=== PATIENT | male | born 1990 | race Hispanic/Latino ===

== ENCOUNTER 2021-11-14 07:41 | Emergency (ER) | payer SELFPAY ==
[2021-11-14 08:25] VITALS: BP 125/72
--- NOTE | 2021-11-14 08:55 | XRay Report ---
LEFT SHOULDER 3 VIEWS INDICATION: left shoulder pain. COMPARISON: None. IMPRESSION: No acute osseous or soft tissue abnormality. No significant DJD. Signer Name: Ricardo Davenport Jr, MD Signed: 11/14/2021 8:50 AM Workstation Name: [id number]
[2021-11-14] MEDS ORDERED: predniSONE 20 MG TAB PO ONE (10:57)
[2021-11-14] MEDS ORDERED: CYCLOBENZAPRINE 10 MG TAB PO ONE (10:57)
[2021-11-14] MEDS ORDERED: KETOROLAC 60 MG/2 ML INJ IM ONE (10:57)
--- NOTE | 2021-11-14 11:31 | XRay Report ---
LEFT RIB SERIES 3 VIEWS INDICATION: left rib/chest pain. COMPARISON: No relevant prior imaging study available. FINDINGS: No acute pulmonary or pleural findings. No displaced left-sided rib fractures. IMPRESSION: 1. No acute findings. Signer Name: Davy Betancourt MD Signed: 11/14/2021 11:27 AM Workstation Name: [id number]
--- NOTE | 2021-11-14 12:20 | Emergency Department Report ---
ED Upper Extremity Inj HPI - General Chief Complaint: Extremity Injury, Upper Stated Complaint: CP/POSSIBLE CRACK RIBS Time Seen by Provider: 11/14/21 10:37 Source: patient Mode of arrival: Ambulatory Limitations: No Limitations - History of Present Illness Initial Comments: This is a 31-year-old male nontoxic, well nourished in appearance, no acute sig ns of distress presents to the ED with c/o of left shoulder and chest pain x 2 days. 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 Patient denies any injuries or trauma. Patient stated that symptoms of pain only occurs while range of motion and palpation of the shoulder and chest area. Resolved and subsided during rest. Patient denies any numbness, tingling, fever, chills, nausea, vomiting, chest pain, shortness of breath, headache, stiff neck. Patient denies any joint swelling or joint redness. Patient denies decreased range of motion but stated pain with ROM. Patient denies any allergies or significant past medical history. MD Complaint: Injury to:: left, shoulder, finger (chest) -: days(s) Other Extremity Injury: Shoulder: Left Other Injuries: chest Place: work Severity scale (0 -10): 8 Improves With: immobilization Worsens With: movement of extremity Associated Symptoms: denies other symptoms. denies: weakness, numbness, neck pain, suspects foreign body, nausea/vomiting, heard/felt popping sensat - Related Data Home Medications Medication Instructions Recorded Confirmed Last Taken traZODone [Desyrel] 11/14/21 Unknown Previous Rx's Medication Instructions Recorded Last Taken Type Cyclobenzaprine [Flexeril] 10 mg PO QHS PRN #10 tab 11/14/21 Unknown Rx Naproxen 500 mg PO Q12H PRN #12 tab 11/14/21 Unknown Rx Allergies Allergy/AdvReac Type Severity Reaction Status Date / Time No Known Allergies Allergy Verified 11/14/21 08:09 ED Review of Systems ROS: Stated complaint: CP/POSSIBLE CRACK RIBS Other details as noted in HPI Comment: All other systems reviewed and negative Constitutional: denies: chills, fever Eyes: denies: eye pain, eye discharge, vision change ENT: denies: ear pain, throat pain Respiratory: denies: cough, shortness of breath, wheezing Cardiovascular: chest pain. denies: palpitations, dyspnea on exertion, orthopnea, edema, syncope, paroxysmal nocturnal dyspnea Endocrine: no symptoms reported Gastrointestinal: denies: abdominal pain, nausea, diarrhea Genitourinary: denies: urgency, dysuria Musculoskeletal: denies: back pain, joint swelling, arthralgia Skin: denies: rash, lesions Neurological: denies: headache, weakness, paresthesias Psychiatric: denies: anxiety, depression Hematological/Lymphatic: denies: easy bleeding, easy bruising ED Past Medical Hx - Past Medical History Hx Psychiatric Treatment: Yes (anxiety) - Surgical History Past Surgical History?: No - Social History Smoking Status: Never Smoker Substance Use Type: None - Medications Home Medications: Home Medications Medication Instructions Recorded Confirmed Last Taken Type Cyclobenzaprine [Flexeril] 10 mg PO QHS PRN #10 tab 11/14/21 Unknown Rx Naproxen 500 mg PO Q12H PRN #12 tab 11/14/21 Unknown Rx traZODone [Desyrel] 11/14/21 Unknown History ED Physical Exam - General Limitations: No Limitations General appearance: alert, in no apparent distress - Head Head exam: Present: atraumatic, normocephalic - Eye Eye exam: Present: normal appearance - Neck Neck exam: Present: normal inspection, full ROM. Absent: lymphadenopathy - Respiratory Respiratory exam: Present: normal lung sounds bilaterally, chest wall tenderness (left upper area). Absent: respiratory distress, wheezes, rales, rhonchi, stridor, accessory muscle use, decreased breath sounds, prolonged expiratory - Cardiovascular Cardiovascular Exam: Present: regular rate, normal rhythm. Absent: bradycardia, tachycardia, irregular rhythm, systolic murmur, diastolic murmur, rubs, gallop - GI/Abdominal GI/Abdominal exam: Present: soft. Absent: distended, tenderness - Extremities Exam Extremities exam: Present: normal inspection, full ROM, tenderness, normal capillary refill. Absent: joint swelling - Expanded Upper Extremity Exam Left General: Present: normal inspection Shoulder Exam: Present: normal inspection, full ROM, tenderness. Absent: swelling, abrasion, laceration, ecchymosis, deformity, crepidus, dislocation, erythema, tenderness over AC joint Upper Arm exam: Present: normal inspection, full ROM. Absent: tenderness, swelling Elbow exam: Present: normal inspection, full ROM. Absent: tenderness, swelling Forearm Wrist exam: Present: normal inspection, full ROM. Absent: tenderness, swelling Hand Wrist exam: Present: normal inspection, full ROM. Absent: tenderness, swelling Vascular: Present: normal capillary refill. Absent: vascular compromise (Neurovascular within normal limits) - Back Exam Back exam: Present: normal inspection, full ROM. Absent: tenderness, CVA tenderness (R), CVA tenderness (L), muscle spasm, paraspinal tenderness, vertebral tenderness, rash noted - Neurological Exam Neurological exam: Present: alert, oriented X3, normal gait - Psychiatric Psychiatric exam: Present: normal affect, normal mood - Skin Skin exam: Present: warm, dry, intact, normal color. Absent: rash - Expanded Skin Exam Expanded 1 - pain here ED Course Vital Signs 11/14/21 08:13 Temperature 98.2 F Pulse Rate 70 Respiratory 18 Rate Blood Pressure 125/72 Blood Pressure 125/72 [Left] O2 Sat by Pulse 98 Oximetry - Reevaluation(s) Reevaluation #1: 11/14/21 12:20 Patient is speaking in full sentences with no signs of distress noted. ED Medical Decision Making - Radiology Data [address] [address] XRay Report Signed Patient: DAINA GONSALEZ MR#: [id number] : 1990 Acct:[id number] Age/Sex: 31 / M A DM Date: 11/14/21 Loc: ED Attending Dr: Ordering Physician: CINDI CLAYTON MD Date of Service: 11/14/21 Procedure(s): XR shoulder 2+V LT Accession Number(s): [id number] cc: ED MD MATILDE Fluoro Time In Minutes: LEFT SHOULDER 3 VIEWS INDICATION: left shoulder pain. COMPARISON: None. IMPRESSION: No acute osseous or soft tissue abnormality. No significant DJD. Signer Name: Ricardo Davenport Jr, MD Signed: 11/14/2021 8:50 AM Workstation Name: [id number] Transcribed By: TTR Dictated By: RICARDO DAVENPORT JR, MD Electronically Authenticated By: RICARDO DAVENPORT JR, MD Signed Date/Time: 11/14/21849 DD/ 9 TD/TT: [facility] [address] [place] [address] XRay Report Signed Patient: DAINA GONSALEZ MR#: [id number] : 1990 Acct:[id number] Age/Sex: 31 / M ADM Date: 11/14/21 Loc: ED Attending Dr: Ordering Physician: SVETLANA ANDRE NP Date of Service: 11/14/21 Procedure(s): XR ribs UNI w PA chest 3+V LT Accession Number(s): [id number] cc: SVETLANA ANDRE NP Fluoro Time In Minutes: LEFT RIB SERIES 3 VIEWS INDICATION: left rib/chest pain. COMPARISON: No relevant prior imaging study available. FINDINGS: No acute pulmonary or pleural findings. No displaced left-sided rib fractures. IMPRESSION: 1. No acute findings. Signer Name: Davy Betancourt MD Signed: 11/14/2021 11:27 AM Workstation Name: [id number] Transcribed By: Dictated By: Davy Betancourt MD Electronically Authenticated By: Davy Betancourt MD Signed Date/Time: 11/14/211126 DD/ 25 TD/TT: - Medical Decision Making This is a 31-year-old male that presents with left shoulder and chest muscle strain. Patient is stable and was examined by me. I referred patient to an orthopedic doctor for further evaluation for possible MRI. X-ray has been obtained and dictated by the radiologist. SERGIO and HEART score 0 pints. PERC score for DVT/SVT/PE 0 points. Patient is notified of the x-ray report with noted by the patient. Patient does have normal ROM with some tenderness and no joint swelling. No ecchymosis. no joint redness or swelling. Not warm to touch. No signs of cellulites present. Patient was instructed to RICE therapy. Patient received treatment for pain which stated improvement subsiding. Stated family member will drive patient home after discharge due to possible drowsiness of Flexeril. Patient is discharged with naproxen and Flexeril. At time of discharge, the patient does not seem toxic or ill in appearance. No acute signs of distress noted. Patient agrees to discharge treatment plan of care. No further questions noted by the patient. Critical care attestation.: If time is entered above; I have spent that time in minutes in the direct care of this critically ill patient, excluding procedure time. ED Disposition Clinical Impression: Muscle strain of left shoulder Qualifiers: Encounter type: initial encounter Qualified Code(s): S46.912A - Strain of unspecified muscle, fascia and tendon at shoulder and upper arm level, left arm, initial encounter Muscle strain of chest wall Qualifiers: Encounter type: initial encounter Qualified Code(s): S29.011A - Strain of muscle and tendon of front wall of thorax, initial encounter Disposition: HOME / SELF CARE / HOMELESS Is pt being admited?: No Does the pt Need Aspirin: No Condition: Stable Instructions: Muscle Strain, [id number], Cyclobenzaprine tablets Additional Instructions: Follow-up with your primary care doctor in 3-5 days or if symptoms worsen such as bladder or bowel stability, chest pain, short of breath, numbness or tingling sensation in extremities, headache, dizziness, visual changes, nausea vomiting, or abdominal pain, return back to emergency room as was possible. Take naproxen and Flexeril as prescribed. Do not operate heavy machinery while taking Flexeril due to sedation Prescriptions: Cyclobenzaprine [Flexeril] 10 mg PO QHS PRN #10 tab PRN Reason: Muscle Spasm Naproxen 500 mg PO Q12H PRN #12 tab PRN Reason: Pain , Severe (7-10) Referrals: PRIMARY MD MELCHOR [Primary Care Provider] - 3-5 Days TIM ROBERTS MD [Staff Physician] - 3-5 Days Time of Disposition: 12:23
== END 2021-11-14 13:41 | disposition home or self-care (01) ==
LOC: ED 07:41
DX: S46.912A Strain of unspecified muscle, fascia and tendon at shoulder and upper arm level, left arm, initial encounter (principal); S29.011A Strain of muscle and tendon of front wall of thorax, initial encounter; Z79.899 Other long term (current) drug therapy; W22.8XXA Striking against or struck by other objects, initial encounter; Y93.89 Activity, other specified; Y92.89 Other specified places as the place of occurrence of the external cause; Y99.0 Civilian activity done for income or pay; F41.9 Anxiety disorder, unspecified
CPT/HCPCS: 71101; 73030; 96372; 99283; J1885